=== PATIENT | female | born 1995 | race Caucasian/White ===

== ENCOUNTER 2016-09-28 21:11 | Observation (INO) | payer MEDICAID ==
[~2016-09-28 21:11] MED LIST: PREN-96 PO
== END 2016-09-28 22:11 | disposition home or self-care (01) | DRG 566 ==
LOC: LDRP 21:11
PROVIDERS: ADMIT Obstetrics & Gynecology; ATTEND Obstetrics & Gynecology
DX: O26.893 Other specified pregnancy related conditions, third trimester (principal); Z3A.39 39 weeks gestation of pregnancy
CPT/HCPCS: 76818; G0378; 59025; 81002

== ENCOUNTER 2021-06-25 12:00 | Observation (INO) | payer MEDICAID | END 2021-06-25 13:28 | disposition home or self-care (01) | LOC: LDRP 12:00 | PROVIDERS: ADMIT Obstetrics & Gynecology; ATTEND Obstetrics & Gynecology | DX: O36.60X0 Maternal care for excessive fetal growth, unspecified trimester, not applicable or unspecified (principal); O36.8330 Maternal care for abnormalities of the fetal heart rate or rhythm, third trimester, not applicable or unspecified; Z3A.00 Weeks of gestation of pregnancy not specified | CPT/HCPCS: 59025; 76818; 81002; 94760; G0378; G0379 ==

== ENCOUNTER 2021-06-27 20:51 | Inpatient (IN) | payer MEDICAID ==
[~2021-06-27] VITALS: Ht 180.3 cm; Wt 141.1 kg
[2021-06-27] MEDS ORDERED: PROMETHAZINE HCL 25 MG/ML 1ML IV PRN (21:00)
[2021-06-27] MEDS ORDERED: PHISODERM TOP SOLN 240ML BTL TOP PRN (21:00)
[2021-06-27] MEDS ORDERED: WITCH HAZEL-GLYCERIN PAD TOP PRN (21:00)
[2021-06-27] MEDS ORDERED: BUTORPHANOL TARTRATE 2 MG/1 ML VIAL IV PRN ×2 (21:00)
[2021-06-27] MEDS ORDERED: DERMOPLAST 60ML BOTTLE TOP PRN (21:00)
[2021-06-27] MEDS ORDERED: LACT. RINGERS/OXYTOCIN 20UNITS 500 ML IV ONE ×2 (21:00→21:30)
[2021-06-27] MEDS ORDERED: LIDOCAINE 2%HCL (LOCAL ANESTH.) INJ 20ML MDV IJ PRN (21:00)
[2021-06-27] MEDS: miSOPROStol 50 MCG per PRE-CUT 1/2 TAB PO PRN (21:56)
[2021-06-27] MEDS: LACTATED RINGER'S 1,000 ML IV SCH (21:56)
[2021-06-27 22:23] LABS: Basophils # (auto) 0 10 ^3/uL (0-0.2); Basophils % (auto) 0.2 % (0.0-2.0); Eosinophils # (auto) 0.1 10 ^3/uL (0-0.8); Hematocrit 34.3 % (36.0-46.0); Hemoglobin 11.4 g/dL (12.2-16.2); Lymphocytes # (auto) 1.8 10 ^3/uL (0.4-5.4); Lymphocytes % (auto) 19.6 % (10.0-50.0); Mean Corpuscular Hemoglobin 27.5 pg (28.0-32.0); Mean Corpuscular Hgb Conc. 33.2 g/dL (32.0-36.0); Mean Corpuscular Volume 82.9 fL (80.0-100.0); Monocytes # (auto) 0.6 10 ^3/uL (0-1.3); Monocytes % (auto) 6.6 % (0.0-12.0); Neutrophils # (auto) 6.7 10 ^3/uL (1.6-8.6); Neutrophils % (auto) 72.6 % (37.0-80.0); Red Blood Cells 4.13 10^6/uL (4.0-5.20); Red Cell Distribution Width 14.7 % (11.8-14.3); White Blood Cell 9.3 10^3/uL (4.4-10.8)
[2021-06-27 22:30] LABS: Urine Amorphous Crystal FEW /hpf (None Seen); Urine Bacteria FEW /hpf (None Seen); Urine Blood Negative /uL (Negative); Urine Specific Gravity 1.006 (1.001-1.035); Urine WBC 20 /hpf (0 - 5); Urine WBC Clumps PRESENT /hpf (None Seen)
[2021-06-27 22:38] LABS: INR 0.95 (0.9-1.15)
[2021-06-27 22:45] LABS: Albumin 2.4 g/dL (3.4-5.0); BUN/Creatinine Ratio 12.1; Calcium 9.1 mg/dL (8.5-10.1)
[2021-06-27 22:48] LABS: Alcohol, Urine < 3.0 mg/dL (0-10); Amphetamine Screen, Urine NEGATIVE (NEGATIVE); Benzodiazephine Screen, Urine NEGATIVE (NEGATIVE); Cannabinoid Screen, Urine NEGATIVE (NEGATIVE); Cocaine Screen, Urine NEGATIVE (NEGATIVE); Opiate Scree,Urine NEGATIVE (NEGATIVE); Phencyclidine Screen, Urine NEGATIVE (NEGATIVE)
[2021-06-27 22:53] LABS: Bilirubin, Total 0.4 mg/dL (0.2-1.0)
[2021-06-27 23:09] LABS: Barbiturate Scree,Urine NEGATIVE (NEGATIVE)
[2021-06-28] MEDS: miSOPROStol 50 MCG per PRE-CUT 1/2 TAB PO PRN (02:13)
[2021-06-28] MEDS: LACTATED RINGER'S 1,000 ML IV SCH (05:25)
[2021-06-28] MEDS ORDERED: NIFEdipine 10 MG CAP PO ONE (05:30)
[2021-06-28] MEDS ORDERED: LACT. RINGERS/OXYTOCIN 20UNITS 1,000 ML IV SCH (06:00)
[2021-06-28] MEDS ORDERED: TERBUTALINE SULFATE 1 MG/ML 1ML VIAL SC PRN (06:00)
[2021-06-28] MEDS ORDERED: miSOPROStol 100 mcg TAB ONE (07:15)
[2021-06-28] MEDS ORDERED: METHYLERGONOVINE MALEATE 0.2 MG/ML AMP IM ONE (07:16)
[2021-06-28] MEDS: ACETAMINOPHEN 325 MG TAB PO PRN ×2 (08:59→22:33)
[2021-06-28 11:00] VITALS: BP 110/70
[2021-06-28] MEDS: IBUPROFEN 600 MG TAB PO PRN ×2 (12:23→17:24)
[2021-06-28] MEDS: DOCUSATE SOD 100 MG CAP PO SCH ×2 (13:53→22:00)
[2021-06-28 14:56] VITALS: BP 116/59
[2021-06-28 19:00] VITALS: BP 115/52
[2021-06-28 22:30] VITALS: BP 115/72
[2021-06-28] MEDS ORDERED: DOCUSATE SOD 100 MG CAP PO ONE (22:30)
[2021-06-29 03:00] VITALS: BP 109/58
[2021-06-29] MEDS: IBUPROFEN 600 MG TAB PO PRN (06:00)
[2021-06-29 07:00] VITALS: BP 107/64
[2021-06-29 08:06] LABS: RPR Non Reactive (Non Reactive)
[2021-06-29] MEDS ORDERED: MEASLES, MUMPS & RUBELLA VAC(MMRII) 0.5ML SC ONE (09:30)
[2021-06-29 10:34] VITALS: BP 109/69
[2021-06-29] MEDS: DOCUSATE SOD 100 MG CAP PO SCH (10:37)
[2021-06-29] MEDS: ACETAMINOPHEN 325 MG TAB PO PRN (10:40)
[2021-06-29] MEDS ORDERED: IBU600T PO (10:42)
[2021-06-29] MEDS ORDERED: IBUPROFEN 600 MG TAB PO PRN (10:45)
== END 2021-06-29 11:22 | disposition home or self-care (01) | DRG 560 ==
LOC: LDRP 20:51
PROVIDERS: ADMIT Obstetrics & Gynecology Obstetrics; ATTEND Obstetrics & Gynecology Obstetrics
PROC: 10E0XZZ Delivery of Products of Conception, External Approach (ICD-10-PCS; principal; 2021-06-28)
PROC: 0KQM0ZZ Repair Perineum Muscle, Open Approach (ICD-10-PCS; 2021-06-28)
PROC: 3E0134Z Introduction of Serum, Toxoid and Vaccine into Subcutaneous Tissue, Percutaneous Approach (ICD-10-PCS; 2021-06-28)
DX: O36.63X0 Maternal care for excessive fetal growth, third trimester, not applicable or unspecified (principal); Z37.0 Single live birth; O70.1 Second degree perineal laceration during delivery; Z20.822 Contact with and (suspected) exposure to COVID-19; Z3A.39 39 weeks gestation of pregnancy; Z23 Encounter for immunization
CPT/HCPCS: 36415; 59025; 59200; 59409; 80053; 80307; 81001; 85025; 85610; 85730; 86592; 86850; 86900; 86901; 87426; 94760; 96360; 96361; 96365; 96366; 96374; 96375; G0378; J2590

== ENCOUNTER 2023-08-24 07:27 | Day surgery (SDC) | payer MEDICAID ==
[2023-08-21 09:03] LABS: Urine Epithelial Cast None Seen /hpf (<5)
[2023-08-21 09:06] LABS: Eosinophils # (auto) 0.1 10 ^3/uL (0-0.8); Eosinophils % (auto) 1.9 % (0.0-7.0); Hemoglobin 13.7 g/dL (12.2-16.2); Monocytes # (auto) 0.4 10 ^3/uL (0-1.3)
[2023-08-21 09:07] LABS: Basophils # (auto) 0 10 ^3/uL (0-0.2); Basophils % (auto) 0.6 % (0.0-2.0); Hematocrit 41.3 % (36.0-46.0); Lymphocytes # (auto) 2.2 10 ^3/uL (0.4-5.4); Lymphocytes % (auto) 32.2 % (10.0-50.0); Mean Corpuscular Hemoglobin 27.2 pg (28.0-32.0); Mean Corpuscular Hgb Conc. 33.3 g/dL (32.0-36.0); Mean Corpuscular Volume 81.6 fL (80.0-100.0); Monocytes % (auto) 6.3 % (0.0-12.0); Nucleated Red Blood Cells % 0.1 %; Red Blood Cells 5.06 10^6/uL (4.0-5.20); Red Cell Distribution Width 13.5 % (11.8-14.3); White Blood Cell 6.7 10^3/uL (4.4-10.8)
[2023-08-21 09:18] LABS: INR 1.02 (0.9-1.15); Partial Thromboplastin Time 29.3 SEC (24.5-34.5); Prothrombin Time 10.7 sec (9.3-11.8)
[2023-08-21 09:21] LABS: Urine Bacteria NONE SEEN /hpf (None Seen); Urine Blood Negative /uL (Negative); Urine Budding Yeast FEW /hpf (None Seen); Urine Clarity HAZY (Clear); Urine Color Colorless (Yellow); Urine Protein, UAD Negative (Negative); Urine Specific Gravity 1.005 (1.001-1.035); Urine Urobilinogen Normal (Negative); Urine WBC 32 /hpf (0 - 5); Urine pH 7.5 (5.0-8.0)
[2023-08-21 09:27] LABS: Alanine Aminotransferase 14 U/L (7-40); Albumin 4.7 g/dL (3.2-4.8); Alkaline Phosphatase 73 U/L (46-116); Anion Gap 7 (5-15); Aspartate Aminotransferase 19 U/L (13-40); BUN/Creatinine Ratio 7.9 (10.0-20.0); Blood Urea Nitrogen 7 mg/dL (9-23); Carbon Dioxide 26 mmol/L (20-30); Chloride 107 mmol/L (98-107); Glucose 95 mg/dL (74-106); Potassium 4.1 mmol/L (3.5-5.1); Sodium 140 mmol/L (136-145); Total Protein 7.7 g/dL (5.7-8.2)
[2023-08-21 09:35] LABS: Bilirubin, Total 0.9 mg/dL (0.2-1.0)
[~2023-08-24] VITALS: Ht 182.9 cm; Wt 134.7 kg
[2023-08-24] MEDS ORDERED: PROPOFOL 10 MG/ML 20 ML IV ONE (09:04)
[2023-08-24 09:14] VITALS: TEMP 97.9; O2SAT 100
[2023-08-24 09:40] VITALS: BP 105/64; PULSE 59; RESP 15; O2SAT 100
== END 2023-08-24 09:45 | disposition home or self-care (01) ==
LOC: GI 07:27
PROVIDERS: ATTEND Internal Medicine Gastroenterology
DX: R10.13 Epigastric pain (principal); I10 Essential (primary) hypertension; J45.909 Unspecified asthma, uncomplicated; F32.A Depression, unspecified
CPT/HCPCS: 36415; 43235; 80053; 81001; 81025; 85025; 85610; 85730; J2704; J7030